=== PATIENT | female | born 1990 | race Caucasian/White ===

== ENCOUNTER 2024-02-13 14:01 | Emergency (ER) | payer OTHER ==
[~2024-02-13] VITALS: Ht 154.9 cm; Wt 81.6 kg
[2024-02-13 14:08] VITALS: BP_SYST 112; PULSE 66; RESP 18; TEMP 98.3; O2SAT 99
[2024-02-13 15:58] VITALS: BP_SYST 112; PULSE 66; RESP 18; TEMP 98.3; O2SAT 99
== END 2024-02-13 15:59 | disposition home or self-care (01) ==
LOC: SED 14:01
DX: R20.2 Paresthesia of skin (principal); Z79.899 Other long term (current) drug therapy
CPT/HCPCS: 70450-TC; 81025; 99284